=== PATIENT | female | born 1985 | race Caucasian/White ===

== ENCOUNTER 2019-11-18 10:09 | Emergency (ER) | payer OTHER ==
[2019-11-18] MEDS ORDERED: CYCLOBENZAPRINE10 MG PO (12:33)
[2019-11-18] MEDS ORDERED: Motrin,Rufen800 MG PO (12:33)
== END 2019-11-18 12:55 | disposition home or self-care (01) ==
LOC: ED 10:09
DX: S39.012A Strain of muscle, fascia and tendon of lower back, initial encounter (principal); J45.909 Unspecified asthma, uncomplicated; Z88.0 Allergy status to penicillin; X50.1XXA Overexertion from prolonged static or awkward postures, initial encounter; Y93.89 Activity, other specified; Y92.89 Other specified places as the place of occurrence of the external cause; Y99.8 Other external cause status